=== PATIENT | male | born 1985 | race Caucasian/White ===

== ENCOUNTER 2018-09-20 11:11 | Inpatient (IN) | payer OTHER ==
[2018-09-20 11:49] LABS: PLATELET COUNT 270 10^3/uL (150-400)
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
--- NOTE | 2018-09-20 17:52 | ASMTTCLDSP ---
TLC Discharge Disposition Disposition: Answers: Admit Discharge Concerns/Recommendations: Notes: In consultation with [facility] ED physician, Addison Corrales MD and on-call psychiatrist, Akira Kenney APN, both concurred that pt appears to meet 27-65 criteria requiring psychiatric hospitalization as pt appears to be at risk of harm to gravely disabled due to a mental illness condition. Pt was given the 3N prohibited belongings list while in the ED. For inpatient Akira Kenney APN admission, the following psychiatrist agreed to accept patient for admission to Behavioral [facility] ([facility]): Date Signed: 09/20/2018 05:51 PM Electronically Signed By:Madiha Maradiaga
[2018-09-20] MEDS ORDERED: LORazepam 0.5 MG TAB PO PRN (20:15)
[2018-09-20] MEDS ORDERED: MAG HYDROX/AL HYDROX/SIMETH 30 ML UDCUP PO PRN (20:15)
[2018-09-20] MEDS ORDERED: OLANZapine DISINTEGR 5 MG TAB PO PRN (20:15)
[2018-09-20] MEDS ORDERED: MAGNESIUM HYDROXIDE 30 ML UDCUP PO PRN (20:15)
[2018-09-21] MEDS: ACETAMINOPHEN 325 MG TAB PO PRN (00:36)
[2018-09-21] MEDS ORDERED: NICOTINE POLACRILEX 2 MG GUM B ONE (05:37)
--- NOTE | 2018-09-21 05:40 | GCON ---
MEDICAL CONSULTATION AT THE REQUEST OF PSYCHIATRY. DATE OF CONSULTATION: 09/20/2018 CHIEF COMPLAINT: " I lost my mind over a woman." HISTORY: This is a 33-year-old man who is brought in on an M1 hold from [employer] [facility] with concerns that the patient has been delusional and behaving in a psychotic manner for the last 6 weeks . Apparently, patient has been stalking a female classmate and concerns were raised by the Universit y that he may be psychotic. At the time of my evaluation, patient states that these issues were all over this woman that he fell in love with which made him crazy and states that this has never happene d to him before. He is guarded on my evaluation, will not give any further information and is at salvador es somewhat agitated. He denies any prior similar issues. He denies any current physical complaints other than being physically cold. PAST MEDICAL HISTORY: Denies. PAST SURGICAL HISTORY: Denies. FAMILY HISTORY: He denies any family history of mental health problems or other chronic medical issu es. 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 He denies drug use other than occasional marijuana and alcohol use, which he states are both social only. He is a smoker. REVIEW OF SYSTEMS: A 10-point review of systems obtained, negative except as per HPI. HOME MEDICATIONS: He denies any medications. ALLERGIES: No known drug allergies. PHYSICAL EXAM: VITAL SIGNS: BP 138/68, heart rate 75, respiratory rate 18, O2 sats 96% on room air, temperature is 36.7. GENERAL APPEARANCE: This is a thin, male. He is awake and alert. He is agitated, but no acute distress. EYES: Anicteric. HENT: Oropharynx clear. CARDIOVASCULAR: Regular rate and rhythm. No MRG. PULMONARY: CTA bilaterally. Normal work of breathing. ABDOMEN: Soft, nontender. Positive bowel sounds. EXTREMITIES: No clubbing, cyanosis, or edema. SKIN: Wa rm, dry, well perfused. NEURO/PSYCH: Patient is intermittently flat and then agitated. He is answe ring questions appropriately. His thought process is linear, though he does seem guarded and at time s not wanting to answer questions asked of him. CLINICAL DATA: Labs reviewed. Notable only for a glucose of 105. U-tox was positive for marijuana. ASSESSMENT/PLAN: This is a 33-year-old man apparently no prior past medical history, presenting with concerns of delusional and psychotic behavior. 1. Delusional/psychotic behavior. The patient is difficult to evaluate as he is very cagy on my exa m. He does seem to have a significant amount of lability emotionally. He reports no prior history o f this. Nothing by workup here on physical exam that would explain his current presentation. We sunshine l add on a TSH. Did not see any medical contraindication to any treatment deemed appropriate by the Psychiatric Service at this point. 2. Hyperglycemia. Suspect that this is stress response in the setting of psychosis. Would recommen d a repeat of this at some point, but do not feel this needs to be performed eminently. 3. Marijuana use. Patient is very adamant that he uses only occasionally and lightly. Unclear how this is contributing to his acute presentation. The patient is new to my care. Old records reviewed, summarized as per HPI and past medical history. Care plan reviewed with TLC excellence coach. Medicine will be available peripherally should questions arise during this patient's hospitalization. /[id number]/MODL
[2018-09-21] MEDS: NICOTINE POLACRILEX 2 MG GUM B PRN ×11 (05:45→23:43)
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
--- NOTE | 2018-09-21 14:12 | ASMTBHMTP ---
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 The patient reported that another professor recommended he access therapy through the [facility] due to observed weight loss and lack of eating. The patient reported that he was flirting with a collegue/student although he understood that this was inappropriate per school policy. He minimized the extent to which he attempted contact with this person. The patient stated, "I feel head over heals. It is like I have to fall in love with everyone that I know and figure out who loves me back. I lived my entire life with her in my head." The patient reported that he was called into an "office" to discuss the hint/proposal he made for the person on the chalkboard prior to the start of class, the police became involved, and he was brought to inpatient care. The patient did not demonstrate insight into the need for treatment. The patient later asked this senior technical writer to contact the person whom he is in love with. This senior technical writer declined and reiterated the inappropriate nature of the request. Patient's stated presenting problems: Notes: The patient stated, "None. I'm just love struck." Patient's goals for treatment: Notes: The patient stated, "I'm here to help as many people as I can." Patient's strengths: Notes: The patient stated, "Observation, subtlety, and communicating on multiple levels at once." Identify supports outside of hospital: Notes: The patient reported being supported outside of the hospital by his "neighbors and peers." Discharge criteria: Notes: Psychotic symptoms will be reduced or eliminated with return to baseline functioning in affect, thinking, and behavior prior to discharge. Initial disposition plan/considerations: Notes: The patient plans to return home to his apartment in [place], [place]. Master Treatment Plan Required Signatures Psychiatrist signature: Answers: Psychiatrist: RN on-shift signature: Answers: RN: Patient signature: Answers: Patient: Date Signed: 09/21/2018 02:12 PM Electronically Signed By:Sarina Griffith
--- NOTE | 2018-09-21 14:45 | PDMN ---
Medical Necessity Medical necessity: Pt meets inpt criteria per MD order and [facility] B-[id number], Other Psychotic Disorders, Adult: Inpatient Care, 3 days. 33 y/o on M1 Hold due to grave disability, admitted w/unspecified psychosis, cannabis use do, sever, nicotine dep, r/o delusional do, r/o bipolar. Pt w/current delusions requires inpt psychiatric hospitalization for eval/management of above.
--- NOTE | 2018-09-21 14:45 | ASMTCMCOM ---
CM Note CM Note Notes: Per Ember Garner, the patient has Medicaid [facility]; # [id number]. Case #[id number]. Rinku denied any previous psychiatric history; illness nor treatment. He reported that his son, Phillip, is "stressed out and lacking sleep." He is in contact with Whit at on behalf of the patient. Date Signed: 09/21/2018 02:45 PM Electronically Signed By:Sarina Griffith
[2018-09-22] MEDS: NICOTINE POLACRILEX 2 MG GUM B PRN ×5 (00:47→16:44)
[2018-09-22] MEDS ORDERED: NICOTINE POLACRILEX 2 MG GUM B ONE (03:32)
--- NOTE | 2018-09-22 14:15 | ASMTCMCOM ---
CM Note CM Note Notes: Pt reports feeling "great". Pt. stated he slept "very well". Pt. reports "I don't eat your food", adding "I order pizza". Pt. stated he is not taking any medication currently, adding "all I had to do was sober up". Pt. reports attending all groups while on the unit. Pt. stated he is not having any issues while on the unit. Pt. stated he will be on the unit until tomorrow afternoon "at the latest, adding he would "like to leave". Pt. denied SI, HI, AVH and paranoia. Pt. presents as alert, attentive, calm, a bit guarded, cooperative and with good eye contact. Staff report pt. sleeping 3.5 hours and not currently taking any medications. CC team reports pt's cat has been checked on and given "lots of food and water", and pt's parent's requested pt's cat not be removed from the apartment, adding the cat is an BYRON cat. Date Signed: 09/22/2018 02:13 PM Electronically Signed By:Alyssa Tohmas
[2018-09-22] MEDS ORDERED: NICOTINE 14 MG/24 HR PATCH TD PRN (15:33)
--- NOTE | 2018-09-22 17:35 | SOAPPROG ---
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 She alleges he broke into her office and left bizarre nonsensical notes. Patient says "this is just a big misunderstanding". He reports that he fell in love with her, does not know if the feeling is mutual, and that he is being accused of stalking her. Plan: 09/22/18 17:34 1. Patient has no psychotic sxs. His only bizarre behavior is inappropriate behavior toward female grad student. He continues to have no insight into the severity of his behavior or its inappropriateness. He is not deluded that his female colleague is in love with him, he only insists he wants to find out if she shares his feelings. However, he is clearly not willing to take no for an answer. He is not paranoid and does not have other bizarre thoughts. It's likely that his impaired reality testing is d/t daily THC use. It would be unusual for 33 yo man to develop psychotic sxs for first time at this age. Typically first psychotic episodes for men are in late teens early 20's. 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 2. Patient would benefit from abstinence from THC and other cognitively impairing substances. He might also benefit from low dose SGA until sxs fully resolve. However, patient adamantly refuses all psych meds. 3. [facility] expires on Monday. Will encourage patient to remain in hospital for further safety, stabilization and monitoring. 4. Recommend f/u with providers through [facility] and [facility]. Subjective: Patient is pleasant and cooperative on unit. However, he has been spending most of his time on unit with one female peer. He has not engaged in any sexually inappropriate behavior during his admission. He denies feeling sad, depressed, hopeless, helpless, worthless or anxious. He denies any paranoid delusions, AH/ VH, IOR or bizarre thoughts. He demonstrates limited insight into the effect his behaviors had on his female colleague or why they were inappropriate. Objective: Vital Signs Temp Pulse Resp BP Pulse Ox 36.5 C 54 L 16 117/68 95 09/22/18 06:00 09/22/18 06:00 09/22/18 06:00 09/22/18 06:00 09/22/18 06:00 MSE: Affect: Euthymic Mood: "OK" TP: Linear, goal-directed TC: Denies any SI/ HI, no paranoid Perception: No AH/VH Insight/Judgment: Poor a/e/b "stalking" behavior of female colleague - Time Spent With Patient Time Spent With Patient: 15" - Pending Discharge Pending Discharge Within 24 Hours: No Pending Discharge Within 48 Hours: No ICD10 Worksheet Patient Problems: Problems Problem Status Onset Cannabis use disorder, severe, dependence Acute Nicotine dependence Acute Unspecified psychosis Acute
[2018-09-23] MEDS: NICOTINE POLACRILEX 2 MG GUM B PRN ×9 (00:21→23:40)
--- NOTE | 2018-09-23 15:25 | ASMTCMCOM ---
CM Note CM Note Notes: Pt. reports feeling "contimplative". Pt. stated he slept "well. Got over six hours". Pt. stated he is not taking any medications. Pt. stated he has been attending groups, adding "they are a lot of fun". Pt. stated he was "running an experiement" with THC, adding "which failed". Pt. stated he smokes THC to help him sleep. Pt. reports his smoking increased and is the "main reason" why the pt. is now in the hospital. Pt. stated THC "makes it difficult to understand your emotions". Pt. stated he plans to smoke THC over the holiday break and will stop smoking at the beginning of next semester. Pt. 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 Pt. stated this [employer] student ministries director also wants to meet him because "she saw something in my handwriting which has several aspects of other languages". Pt. stated he has a dentist appointment on Monday at 1:15pm, adding he doesn't take care of his teeth as a form os "self punishment" for continuing to smoke cigarettes. Pt. was interested in quitting smoking and provided him with the [id number] card. Pt. stated he has until 09/27 to withdraw from his classes. Pt. denied SI, HI, AVH and paranoia. Pt. presents as alert, good eye contact, grandiose, delusional, mostly cooperative, and needing to be redirected from listening to CC's conversations with other pts and pt's family members Staff report pt. sleeping 3 hours and being rude and demanding with RN. Date Signed: 09/23/2018 03:25 PM Electronically Signed By:Alyssa Thomas
--- NOTE | 2018-09-23 17:57 | SOAPPROG ---
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 She alleges he broke into her office and left bizarre nonsensical notes. Patient says "this is just a big misunderstanding". He reports that he fell in love with her, does not know if the feeling is mutual, and that he is being accused of stalking her. Plan: 09/22/18 17:34 1. Patient has no psychotic sxs. His only bizarre behavior is inappropriate behavior toward female grad student. He continues to have no insight into the severity of his behavior or its inappropriateness. He is not deluded that his female colleague is in love with him, he only insists he wants to find out if she shares his feelings. However, he is clearly not willing to take no for an answer. He is not paranoid and does not have other bizarre thoughts. It's likely that his impaired reality testing is d/t daily THC use. It would be unusual for 33 yo man to develop psychotic sxs for first time at this age. Typically first psychotic episodes for men are in late teens early 20's. 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 2. Patient would benefit from abstinence from THC and other cognitively impairing substances. He might also benefit from low dose SGA until sxs fully resolve. However, patient adamantly refuses all psych meds. 3. [facility] expires on Monday. Will encourage patient to remain in hospital for further safety, stabilization and monitoring. 4. Recommend f/u with providers through [facility] and [employer]. 09/23/18 17:54 1. Patient expressing bizarre ideas that appear delusional. 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 2. Patient acknowledges that his thoughts have been "messed up" since he started smoking more marijuana. He admits he went from smoking "a blunt" a day to several bowels daily over past few months. 3. Patient says there is "nothing wrong" and refuses all psych meds. 4. Will place on STC Subjective: Patient states there is "nothing wrong" and he doesn't need to be in hospital and refuses all psych meds. He told CC that he had been "running an experiment" on himself over past several months by increasing his THC use and says "it failed." Patient says since he's been in hospital he is thinking better and thoughts are "more clear." Patient still has no insight into the inappropriate nature of his behavior toward female colleague in grad program at . Today, patient was talking about working on "universal timber setter" jazlyn with [employer] grad student. This sounds delusional on face of it, but MD has no collateral information to verify whether this is true or not. Patient denies any SI/HI. Objective: Vital Signs Temp Pulse Resp BP Pulse Ox 36.5 C 78 12 109/70 97 09/22/18 06:00 09/23/18 06:00 09/23/18 06:00 09/23/18 06:00 09/23/18 06:00 MSE: Affect: Expansive Mood: "Great" TP: Loose, tangential TC: Denies any SI /HI, appears delusional Perception: Denies any AH/VH Insight/Judgment: Poor - Time Spent With Patient Time Spent With Patient: 15" - Pending Discharge Pending Discharge Within 24 Hours: No Pending Discharge Within 48 Hours: No ICD10 Worksheet Patient Problems: Problems Problem Status Onset Cannabis use disorder, severe, dependence Acute Nicotine dependence Acute Unspecified psychosis Acute
[2018-09-23] MEDS ORDERED: NICOTINE POLACRILEX 2 MG GUM B ONE (23:39)
[2018-09-24] MEDS: NICOTINE POLACRILEX 2 MG GUM B PRN ×7 (00:45→21:11)
--- NOTE | 2018-09-24 08:44 | SOAPPROG ---
SOAP Progress Note Assessment/Plan: Assessment: Unspecified Psychosis. Cannabis Use Disorder, Severe. R/O Substance-induced psychosis. Improvement noted, notably slight improved insight and judgment ( see subjective/objective note). 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 Patient insight has improved slightly, however, as he now reports his behavior toward grad student was inappropriate. Possible indication cannabis-induced psychosis is clearing. Patient is not safe to discharge at this time as patient continues to exhibit signs of psychosis, and express psychosis symptoms. Patient requires continued inpatient care because of current psychosis, and requires inpatient level of care to stabilize in order to no longer be a danger to others and gravely disabled due to mental illness. Patient could benefit from continued inpatient hospitalization for crisis stabilization, safety, and medication evaluation. Plan: 1. Psychotropic medications: Patient refuses psych meds. 2. Review with patient informed consent and recommendations for psychotropic medication treatment listed below 3. Labs: no additional labs at this time. 4. Therapy: continue milieu and group therapy 5. Further investigation including gathering information from patients relatives and review of past case records to inform treatment plan. 6. Safety/Wellness plan and follow-up outpatient appointments to be established prior to discharge. Next steps are for patient to meet with disabilities caregiver to plan a safe discharge plan and establish outpatient services for ongoing treatment. 7. Confer with inpatient treatment team regarding treatment plan. 8. Psychosocial stressors addressed through case technician 9. Legal status: [facility] 10. Consider discharge this week if patient is in stable condition, safe, and has a safe discharge plan. 11. Substance abuse interventions: cannabis PSYCHOTROPIC MEDICATION TREATMENT INFORMED CONSENT and RECOMMENDATIONS: Review nature of condition, diagnosis, and prognosis. Review nature and purpose of psychotropic medication treatment. Review type of psychotropic medications being ordered. Review risk and benefits of psychotropic medication treatment. Review probable length of time patient will need to take medications. Review risk and benefits of not undergoing psychotropic medication treatment. Review alternative treatments to psychotropic medications. Review psychotropic medications contraindications, drug-drug interactions, side effects, and importance of reporting any side effects to a psychiatric provider or nurse during inpatient hospitalization, and upon discharge to patients psychiatric outpatient provider, primary care provider, or other health acute care physical therapist. Review importance of asking a nurse, psychiatric provider, or primary care provider any questions or problems concerning the psychotropic medications. Verify patient understands the information that has been provided, and understands, accepts, and agrees to psychotropic medications. Review patients safety plan and importance of patient to report to staff while hospitalized if patient is ever a danger to self/others, or unable to care for self, and upon discharge, the importance for patient to contact [facility] or [facility], or go to the nearest emergency room, if patient is ever a danger to self/others, or unable to care for self. Recommend that upon discharge patient establish medication management treatment with a psychiatric provider, establishes routine therapy appointments, and follow-up with primary care provider. Verify patient understands and agrees to these recommendations. 09/24/18 08:47 Subjective: Following up with patient for evaluation of psychosis and safety. Patient reports, "I came to terms with my situation, I sobered up, easier to see the mistakes and whatnot. What I did at was not good, I think I scared her, I didn't mean to. I won't speak to her again. If she doesn't want to talk to me , I want talk to her. I will avoid her and stuff like that. What I did was inappropriate. I would not define what I did as stalking, more inappropriate, and I did not send that many e-mails, that is grossly exaggerated." Patient expresses the following psychiatric symptoms none. Patient describes getting 4.5 hours of sleep, and reports feeling rested this morning. Objective: Vital Signs Temp Pulse Resp BP Pulse Ox 36.7 C 88 16 114/76 94 09/24/18 06:00 09/24/18 06:00 09/24/18 06:00 09/24/18 06:00 09/24/18 06:00 NURSING REPORT: Consulted with nursing for update on patients progress in treatment. Nurses report patient is engaged in treatment, is attending groups, slept 4 hours, expresses the following psychiatric symptoms: none, exhibits the following psychiatric symptoms: paranoid, delusional; is eating all meals, is agreeable to medications and taking as prescribed with no report of side effects , with no s/s of EPS/akathisia, and denies SI/HI, denies A/V hallucinations, and reports delusions. MD REPORT FROM WEEKEND: Placed on STC. Still refusing to take psych meds. MSE: The patient presents casually dressed and with good hygiene, and looks stated age. Patient is sitting, posture is upright, and position is relaxed. Patient appears awake, alert, and responds appropriately and reasonably during interview. Patient is engaged, relates well to interviewer, and emotional facial expression is appropriate to situation and changes appropriately with topic. Patient is cooperative, makes comfortable eye contact, and movements are voluntary, deliberate, coordinated, and smooth and even with no inappropriate movements. Patient makes laryngeal sounds effortlessly and shares conversation appropriately; pace of conversation is appropriate, and stream of talking is fluent; articulation is clear and understandable; word choice is effortless and appropriate for education level; completes sentences, occasionally pausing to think; rate and volume are appropriate for interview and setting. Patient reports mood as euthymic. Patients affect is stable with full variable range, congruent with mood, and appropriate to speech and circumstances. Patient has linear and illogical thinking, with no loose associations, no tangential thought, no thought blocking, no concrete thinking, or any other signs of formal thought disorder. Patient denies suicidal and homicidal ideation, and denies hallucinations, and reports delusions. Patient appears to be a poor historian with poor judgement and poor insight into current condition. SUBSTANCE ABUSE BRIEF INTERVENTION: Brief intervention regarding the risks of cannabis abuse is provided to patient with goal to reduce the risk of harm that could result from the continued use of cannabis, with the general aim to investigate the problem, raise awareness of problem, develop a solution with the patient, recommend a specific change or activity, and motivate the patient toward change. Assess substance abuse behavior and give supportive advice about harm reduction, recommend a reduction in hazardous/at-risk consumption patterns, and facilitate referrals for additional specialized treatment with patient care technician. Intermediate goal is for the patient to quit and attend outpatient substance abuse treatment. Intervention focus on intermediate goals to allow for more immediate success in the treatment process to keep the patient motivated. Review following with patient: Cannabis use risks: Short- term use: impaired short-term memory, impaired motor coordination, altered judgement, in high doses paranoia and psychosis. Long-term use addiction, diminished life satisfaction and achievement, symptoms of chronic bronchitis, and increased risk of chronic psychosis disorders if predisposition to such disorders. In withdrawal anger, aggression irritability, anxiety and nervousness, decreased appetite or weight loss, restlessness, and sleep difficulties with strange dreams. OUTPATIENT SUBSTANCE ABUSE TREATMENT: Patient referred to outpatient provider and treatment for continued treatment related to substance abuse. PATIENT'S RESPONSE TO INTERVENTION: "Increased use of cannabis is exactly why I am here. I am not going to use it anymore." - Time Spent With Patient Time Spent With Patient: 15 minutes, met with patient individually. - Pending Discharge Pending Discharge Within 24 Hours: No Pending Discharge Within 48 Hours: No ICD10 Worksheet Patient Problems: Problems Problem Status Onset Cannabis use disorder, severe, dependence Acute Nicotine dependence Acute Unspecified psychosis Acute
--- NOTE | 2018-09-24 14:04 | ASMTCMCOM ---
CM Note CM Note Notes: Pt. reports feeling "excellent". Pt. stated he slept "well" adding he got "about 4.5 to 5 hours". Pt. stated "don't need that much sleep when sober". Pt. reports gaining 5 lbs while on the unit. Pt. stated he is not taking any medications and requested melatonin for sleep. Pt. stated "it's really scary" when discussing the STC. Pt. stated he is "really worried about my cat". CC discussed options for caring for his cat, pt. stated he will need to figure out his friend's phone number. Pt. stated he "need to go to the dentist tomorrow", adding he also needs to withdraw from all of his classes by the . CC mentioned the [employer] phone number and asked if pt. had called. Pt. said he will keep the contact information, but "never going to touch cigarette or weed again". Pt. stated he will "never contact that woman again". Pt. denied SI, HI, AVH and paranoia. Pt. presents as alert, labile when speaking about his cat, good eye contact, and cooperative. Staff report pt. sleeping 3 hours. Date Signed: 09/24/2018 02:04 PM Electronically Signed By:Alyssa Thomas
[2018-09-24] MEDS ORDERED: OLANZapine DISINTEGR 5 MG TAB PO SCH (21:00)
[2018-09-24] MEDS: MELATONIN 3 MG TAB PO SCH (22:10)
[2018-09-25] MEDS: NICOTINE POLACRILEX 2 MG GUM B PRN ×4 (04:37→21:37)
[2018-09-25] MEDS: ACETAMINOPHEN 325 MG TAB PO PRN (04:37)
[2018-09-25] MEDS ORDERED: OLANZapine DISINTEGR 10 MG TAB PO SCH (06:30)
--- NOTE | 2018-09-25 06:52 | SOAPPROG ---
SOAP Progress Note Assessment/Plan: Assessment: Unspecified Psychosis. Cannabis Use Disorder, Severe. R/O Substance-induced psychosis, substance-induced mood disorder. No improvement noted (see subjective/objective note). 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 Patient is not safe to discharge at this time as patient continues to exhibit signs of psychosis, and express psychosis symptoms. Yesterday was first day patient willing to begin trial of psychotropic medications since time of his hospitalization. Patient requires continued inpatient care because of current psychosis, and requires inpatient level of care to stabilize in order to no longer be a danger to others and gravely disabled due to mental illness. Patient is unable to communicate his basic needs. Patient exhibits inability to test reality, currently shows inability to maintain any appropriate aspect of personal responsibility as an adult, patient becomes agitated and irritable when asked simple and appropriate questions. Patient could benefit from continued inpatient hospitalization for crisis stabilization, safety, and medication evaluation. Plan: 1. Psychotropic medications: After reviewing options, risks, and benefits patient agrees to continue current mediations with following changes: increase Zyprexa Zydis to 10 mg po QHS. No medication changes at this time as more time is needed to determine ongoing tolerability and efficacy. Plan is to continue to observe patient for response and side effects from medications, and ongoing monitoring and evaluation. 2. Review with patient informed consent and recommendations for psychotropic medication treatment listed below 3. Labs: no additional labs at this time. 4. Therapy: continue milieu and group therapy 5. Further investigation including gathering information from patients relatives and review of past case records to inform treatment plan. 6. Safety/Wellness plan and follow-up outpatient appointments to be established prior to discharge. Next steps are for patient to meet with home care giver to plan a safe discharge plan and establish outpatient services for ongoing treatment. 7. Confer with inpatient treatment team regarding treatment plan. 8. Psychosocial stressors addressed through case management associate 9. Legal status: [facility] 10. Consider discharge this week if patient is in stable condition, safe, and has a safe discharge plan. 11. Substance abuse interventions: cannabis PSYCHOTROPIC MEDICATION TREATMENT INFORMED CONSENT and RECOMMENDATIONS: Review nature of condition, diagnosis, and prognosis. Review nature and purpose of psychotropic medication treatment. Review type of psychotropic medications being ordered. Review risk and benefits of psychotropic medication treatment. Review probable length of time patient will need to take medications. Review risk and benefits of not undergoing psychotropic medication treatment. Review alternative treatments to psychotropic medications. Review psychotropic medications contraindications, drug-drug interactions, side effects, and importance of reporting any side effects to a psychiatric provider or nurse during inpatient hospitalization, and upon discharge to patients psychiatric outpatient provider, primary care provider, or other health primary care pediatrician. Review importance of asking a nurse, psychiatric provider, or primary care provider any questions or problems concerning the psychotropic medications. Verify patient understands the information that has been provided, and understands, accepts, and agrees to psychotropic medications. Review patients safety plan and importance of patient to report to staff while hospitalized if patient is ever a danger to self/others, or unable to care for self, and upon discharge, the importance for patient to contact [facility] or [facility], or go to the nearest emergency room, if patient is ever a danger to self/others, or unable to care for self. Recommend that upon discharge patient establish medication management treatment with a psychiatric provider, establishes routine therapy appointments, and follow-up with primary care provider. Verify patient understands and agrees to these recommendations. 09/25/18 06:54 Subjective: Following up with patient for evaluation of psychosis and safety. Patient reports, "I slept really well last night. Medication seemed to help. I still disagree with the report from . I was not stalking her. I was just in love. The number of e-mails reported that I sent is grossly exaggerated. I did not send 50 e-mails, I sent maybe 4-5. I think there is some covert racism going on. I would rather go up against overt racism instead of covert racism. This is ridiculous. This place is segregated. Total racism. I did not do anything wrong." Patient expresses the following psychiatric symptoms none. Patient describes getting 4 hours of sleep, and reports feeling rested this morning. Patient reports no side effects from current medications, and agrees to increase Zyprexa Zydis to 10 mg po QHS. Objective: Vital Signs Temp Pulse Resp BP Pulse Ox 36.6 C 70 16 118/74 95 09/25/18 06:00 09/25/18 06:00 09/25/18 06:00 09/25/18 06:00 09/25/18 06:00 NURSING REPORT: Consulted with nursing for update on patients progress in treatment. Nurses report patient is engaged in treatment, is attending groups, slept 4 hours, expresses the following psychiatric symptoms: none, exhibits the following psychiatric symptoms: paranoid, delusional, irritable; is eating all meals, is agreeable to medications and taking as prescribed with no report of side effects, with no s/s of EPS/akathisia, and denies SI/HI, denies A/V hallucinations, and reports delusions. MD REPORT FROM WEEKEND: Placed on [facility]. Still refusing to take psych meds. COLLATERAL FROM [employer]: concerns whether or not patient will be able to return to ; failing all his classes, banned from his department building, stalking charges that are being investigated through the campus [employer] department. MSE: The patient is a well-nourished male looking stated chronological age. Attire is appropriate and dress is casual. Grooming status is appropriate. Ambulation is independent. Gait is normal and coordinated. Posture is tense. Eye contact is inappropriate and staring. Motor activity is appropriate with purposeful, organized, coordinated movements; with no involuntary movements. Attitude is uncooperative and defensive. Patient appears distracted and does not relate well to this interviewer. Language production is spontaneous. Rate is pressured, latency of response is shortened, volume is high and inappropriate. Amount is hyperverbal. Articulation is clear. Patient reports mood as okay with incongruent and expansive affect. Patients thought process disorganized, illogical, and non-linear. Patient does not report suicidal/ homicidal thoughts, ideas, or plans. Patient denies auditory, visual hallucinations. Patient reports delusions. Patient does not appear to be attending to internal stimuli. Patients attention and concentration are poor. Patient is oriented to person, place, time. Patients insight and judgment poor. SUBSTANCE ABUSE BRIEF INTERVENTION: Brief intervention regarding the risks of cannabis abuse is provided to patient with goal to reduce the risk of harm that could result from the continued use of cannabis, with the general aim to investigate the problem, raise awareness of problem, develop a solution with the patient, recommend a specific change or activity, and motivate the patient toward change. Assess substance abuse behavior and give supportive advice about harm reduction, recommend a reduction in hazardous/at-risk consumption patterns, and facilitate referrals for additional specialized treatment with nursing care partner. Intermediate goal is for the patient to quit and attend outpatient substance abuse treatment. Intervention focus on intermediate goals to allow for more immediate success in the treatment process to keep the patient motivated. Review following with patient: Cannabis use risks: Short- term use: impaired short-term memory, impaired motor coordination, altered judgement, in high doses paranoia and psychosis. Long-term use addiction, diminished life satisfaction and achievement, symptoms of chronic bronchitis, and increased risk of chronic psychosis disorders if predisposition to such disorders. In withdrawal anger, aggression irritability, anxiety and nervousness, decreased appetite or weight loss, restlessness, and sleep difficulties with strange dreams. OUTPATIENT SUBSTANCE ABUSE TREATMENT: Patient referred to outpatient provider and treatment for continued treatment related to substance abuse. PATIENTS RESPONSE TO INTERVENTION: "Need to stop using it." - Time Spent With Patient Time Spent With Patient: 15 minutes, met with patient individually. - Pending Discharge Pending Discharge Within 24 Hours: No Pending Discharge Within 48 Hours: No ICD10 Worksheet Patient Problems: Problems Problem Status Onset Cannabis use disorder, severe, dependence Acute Nicotine dependence Acute Unspecified psychosis Acute
[2018-09-25] MEDS: OLANZapine DISINTEGR 10 MG TAB PO SCH (20:42)
[2018-09-25] MEDS: MELATONIN 3 MG TAB PO SCH (20:53)
[2018-09-25] MEDS ORDERED: diphenhydrAMINE 25 MG CAP PO PRN (22:08)
--- NOTE | 2018-09-26 09:27 | SOAPPROG ---
SOAP Progress Note Assessment/Plan: Assessment: Unspecified Psychosis. Cannabis Use Disorder, Severe. R/O Substance-induced psychosis. No improvement noted (see subjective/objective note). 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 Patient is not safe to discharge at this time as patient continues to exhibit signs of psychosis, and express psychosis symptoms. Yesterday was first day patient willing to begin trial of psychotropic medications since time of his hospitalization. Patient requires continued inpatient care because of current psychosis, and requires inpatient level of care to stabilize in order to no longer be a danger to others and gravely disabled due to mental illness. Patient is unable to communicate his basic needs. Patient exhibits inability to test reality, currently shows inability to maintain any appropriate aspect of personal responsibility as an adult, patient becomes agitated and irritable when asked simple and appropriate questions. Patient could benefit from continued inpatient hospitalization for crisis stabilization, safety, and medication evaluation. Plan: 1. Psychotropic medications: After reviewing options, risks, and benefits patient agrees to continue current mediations. No medication changes at this time as more time is needed to determine ongoing tolerability and efficacy. Plan is to continue to observe patient for response and side effects from medications, and ongoing monitoring and evaluation. 2. Review with patient informed consent and recommendations for psychotropic medication treatment listed below 3. Labs: no additional labs at this time. 4. Therapy: continue milieu and group therapy 5. Further investigation including gathering information from patients relatives and review of past case records to inform treatment plan. 6. Safety/Wellness plan and follow-up outpatient appointments to be established prior to discharge. Next steps are for patient to meet with assisted living care manager to plan a safe discharge plan and establish outpatient services for ongoing treatment. 7. Confer with inpatient treatment team regarding treatment plan. 8. Psychosocial stressors addressed through nurse case management 9. Legal status: [facility] 10. Consider discharge this week if patient is in stable condition, safe, and has a safe discharge plan. 11. Substance abuse interventions: cannabis PSYCHOTROPIC MEDICATION TREATMENT INFORMED CONSENT and RECOMMENDATIONS: Review nature of condition, diagnosis, and prognosis. Review nature and purpose of psychotropic medication treatment. Review type of psychotropic medications being ordered. Review risk and benefits of psychotropic medication treatment. Review probable length of time patient will need to take medications. Review risk and benefits of not undergoing psychotropic medication treatment. Review alternative treatments to psychotropic medications. Review psychotropic medications contraindications, drug-drug interactions, side effects, and importance of reporting any side effects to a psychiatric provider or nurse during inpatient hospitalization, and upon discharge to patients psychiatric outpatient provider, primary care provider, or other health healthcare marketer. Review importance of asking a nurse, psychiatric provider, or primary care provider any questions or problems concerning the psychotropic medications. Verify patient understands the information that has been provided, and understands, accepts, and agrees to psychotropic medications. Review patients safety plan and importance of patient to report to staff while hospitalized if patient is ever a danger to self/others, or unable to care for self, and upon discharge, the importance for patient to contact [facility] or [facility], or go to the nearest emergency room, if patient is ever a danger to self/others, or unable to care for self. Recommend that upon discharge patient establish medication management treatment with a psychiatric provider, establishes routine therapy appointments, and follow-up with primary care provider. Verify patient understands and agrees to these recommendations. 09/26/18 09:26 Subjective: Following up with patient for evaluation of psychosis and safety. Patient reports, "I did take the medication, then I had a panic attack because I was so freaked-out about taking it. Please, please, please, (patient screaming), I do not want to take any more medications or any higher dose." With regard to why patient is hospitalized, "I agree I sent too many e-mails, I disagree with the report from the professors and grad student though. It was excessive, but not as excessive as they are saying it was. 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 I did no steal anything, I actually left thing for her. I left before classes started because I was told not to be there." Patient expresses the following psychiatric symptoms none. Patient describes getting 8 hours of sleep, and reports feeling rested this morning. Patient reports no side effects from current medications, and agrees to continue current medications. When this [employer] suggests a higher dose of Zyprexa Zydis at HS, patient screams, covers face with his hands, becomes frantic, and screams "no, no, no." Objective: Vital Signs Temp Pulse Resp BP Pulse Ox 36.6 C 79 16 138/89 H 95 09/25/18 06:00 09/25/18 21:35 09/25/18 06:00 09/25/18 21:35 09/25/18 06:00 NURSING REPORT: Consulted with nursing for update on patients progress in treatment. Nurses report patient is engaged in treatment, is attending groups, slept 4 hours, expresses the following psychiatric symptoms: none, exhibits the following psychiatric symptoms: paranoid, delusional, irritable, pressured speech, hyperactivity on unit, intrusive; is eating all meals, is agreeable to medications and taking as prescribed with no report of side effects, with no s/ s of EPS/akathisia, and denies SI/HI, denies A/V hallucinations, and reports delusions. MSE: The patient is a well-nourished male looking stated chronological age. Attire is appropriate and dress is casual. Grooming status is appropriate. Ambulation is independent. Gait is normal and coordinated. Posture is tense. Eye contact is inappropriate and staring. Motor activity is appropriate with purposeful, organized, coordinated movements; with no involuntary movements. Attitude is uncooperative and defensive. Patient appears distracted and does not relate well to this interviewer. Language production is spontaneous. Rate is pressured, latency of response is shortened, volume is high and inappropriate. Amount is hyperverbal. Articulation is clear. Patient reports mood as okay with incongruent and expansive affect. Patients thought process disorganized, illogical, and non-linear. Patient does not report suicidal/ homicidal thoughts, ideas, or plans. Patient denies auditory, visual hallucinations. Patient reports delusions. Patient does not appear to be attending to internal stimuli. Patients attention and concentration are poor. Patient is oriented to person, place, time. Patients insight and judgment poor. SUBSTANCE ABUSE BRIEF INTERVENTION: Brief intervention regarding the risks of cannabis abuse is provided to patient with goal to reduce the risk of harm that could result from the continued use of cannabis, with the general aim to investigate the problem, raise awareness of problem, develop a solution with the patient, recommend a specific change or activity, and motivate the patient toward change. Assess substance abuse behavior and give supportive advice about harm reduction, recommend a reduction in hazardous/at-risk consumption patterns, and facilitate referrals for additional specialized treatment with nurse healthcare manager. Intermediate goal is for the patient to quit and attend outpatient substance abuse treatment. Intervention focus on intermediate goals to allow for more immediate success in the treatment process to keep the patient motivated. Review following with patient: Cannabis use risks: Short- term use: impaired short-term memory, impaired motor coordination, altered judgement, in high doses paranoia and psychosis. Long-term use addiction, diminished life satisfaction and achievement, symptoms of chronic bronchitis, and increased risk of chronic psychosis disorders if predisposition to such disorders. In withdrawal anger, aggression irritability, anxiety and nervousness, decreased appetite or weight loss, restlessness, and sleep difficulties with strange dreams. OUTPATIENT SUBSTANCE ABUSE TREATMENT: Patient referred to outpatient provider and treatment for continued treatment related to substance abuse. - Time Spent With Patient Time Spent With Patient: 15 minutes, met with patient individually. - Pending Discharge Pending Discharge Within 24 Hours: No Pending Discharge Within 48 Hours: No ICD10 Worksheet Patient Problems: Problems Problem Status Onset Cannabis use disorder, severe, dependence Acute Nicotine dependence Acute Unspecified psychosis Acute
[2018-09-26] MEDS: ACETAMINOPHEN 325 MG TAB PO PRN ×2 (09:29→23:28)
[2018-09-26] MEDS: NICOTINE POLACRILEX 2 MG GUM B PRN ×5 (09:30→19:58)
--- NOTE | 2018-09-26 14:12 | ASMTBHFAM ---
Notes Note: Notes: This communications writer spoke with Rinku Garner, who requested an update of the patient's affect and behavior, as well as, a letter to submit to for medical withdrawal from school on behalf of the patient. This communications writer answered questions about his medication list, anticipated discharge, legal status, and follow up care. Rinku reported that the patient has a history of resisting medication for physical complaints. Rinku was surprised to learn about the behavior that the patient exhibited prior to admission. According to [facility] staff, the patient has been demanding, hostile, grandiose, and intrusive. Date Signed: 09/26/2018 02:11 PM Electronically Signed By:Sarina Griffith
[2018-09-26] MEDS: MELATONIN 3 MG TAB PO SCH ×2 (21:57→23:35)
[2018-09-26] MEDS: OLANZapine DISINTEGR 10 MG TAB PO SCH (21:57)
--- NOTE | 2018-09-27 08:14 | SOAPPROG ---
SOAP Progress Note Assessment/Plan: Assessment: Unspecified Psychosis. Cannabis Use Disorder, Severe. R/O Substance-induced psychosis. No improvement noted, no insight (see subjective/objective note). 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 Patient is not safe to discharge at this time as patient continues to exhibit signs of psychosis, and express psychosis symptoms. Yesterday was first day patient willing to begin trial of psychotropic medications since time of his hospitalization. Patient requires continued inpatient care because of current psychosis, and requires inpatient level of care to stabilize in order to no longer be a danger to others and gravely disabled due to mental illness. Patient is unable to communicate his basic needs. Patient exhibits inability to test reality, currently shows inability to maintain any appropriate aspect of personal responsibility as an adult, patient becomes agitated and irritable when asked simple and appropriate questions. Patient could benefit from continued inpatient hospitalization for crisis stabilization, safety, and medication evaluation. Plan: 1. Psychotropic medications: After reviewing options, risks, and benefits patient agrees to continue current mediations. No medication changes at this time as more time is needed to determine ongoing tolerability and efficacy. Plan is to continue to observe patient for response and side effects from medications, and ongoing monitoring and evaluation. 2. Review with patient informed consent and recommendations for psychotropic medication treatment listed below 3. Labs: no additional labs at this time. 4. Therapy: continue milieu and group therapy 5. Further investigation including gathering information from patients relatives and review of past case records to inform treatment plan. 6. Safety/Wellness plan and follow-up outpatient appointments to be established prior to discharge. Next steps are for patient to meet with furnace caretaker to plan a safe discharge plan and establish outpatient services for ongoing treatment. 7. Confer with inpatient treatment team regarding treatment plan. 8. Psychosocial stressors addressed through employment evaluator/case manager 9. Legal status: ST 10. Consider discharge this week if patient is in stable condition, safe, and has a safe discharge plan. 11. Substance abuse interventions: cannabis 12. Consult MD and treatment team today regarding COM as patient continues to refuse medications. PSYCHOTROPIC MEDICATION TREATMENT INFORMED CONSENT and RECOMMENDATIONS: Review nature of condition, diagnosis, and prognosis. Review nature and purpose of psychotropic medication treatment. Review type of psychotropic medications being ordered. Review risk and benefits of psychotropic medication treatment. Review probable length of time patient will need to take medications. Review risk and benefits of not undergoing psychotropic medication treatment. Review alternative treatments to psychotropic medications. Review psychotropic medications contraindications, drug-drug interactions, side effects, and importance of reporting any side effects to a psychiatric provider or nurse during inpatient hospitalization, and upon discharge to patients psychiatric outpatient provider, primary care provider, or other health healthcare translator. Review importance of asking a nurse, psychiatric provider, or primary care provider any questions or problems concerning the psychotropic medications. Verify patient understands the information that has been provided, and understands, accepts, and agrees to psychotropic medications. Review patients safety plan and importance of patient to report to staff while hospitalized if patient is ever a danger to self/others, or unable to care for self, and upon discharge, the importance for patient to contact [facility] or [facility], or go to the nearest emergency room, if patient is ever a danger to self/others, or unable to care for self. Recommend that upon discharge patient establish medication management treatment with a psychiatric provider, establishes routine therapy appointments, and follow-up with primary care provider. Verify patient understands and agrees to these recommendations. 09/27/18 08:13 Subjective: Following up with patient for evaluation of psychosis and safety. Patient reports, "I only took of the medication last night, I spit most of it out. I broke the medication in , then put it in my gum, and spit out the gum. I do not need medications. It just makes me fucked-up man, bad stuff. I dont need to be fucked up all the time. I do not want to follow this behavioral plan. It is very difficult for me not use four letter words. I am here because I over stepped my bounds, I was not stalking. I am just very romantic and like to do things extravagantly. We will flirting the whole semester, she never told me to not pursue her, or quit pursing her. Until the last e-mail when she was probably trying to save her job." Patient expresses the following psychiatric symptoms none. Patient describes getting 7 hours of sleep, and reports feeling rested this morning. Objective: Vital Signs Temp Pulse Resp BP Pulse Ox 36.6 C 79 16 138/89 H 95 09/25/18 06:00 09/25/18 21:35 09/25/18 06:00 09/25/18 21:35 09/25/18 06:00 NURSING REPORT: Consulted with nursing for update on patients progress in treatment. Nurses report patient is engaged in treatment, is attending groups, slept 5 hours, expresses the following psychiatric symptoms: none, exhibits the following psychiatric symptoms: paranoid, delusional, irritable; is eating all meals, is agreeable to medications and taking as prescribed with no report of side effects, with no s/s of EPS/akathisia, and denies SI/HI, denies A/V hallucinations, and reports delusions. MSE: The patient is a well-nourished male looking stated chronological age. Attire is appropriate and dress is casual. Grooming status is appropriate. Ambulation is independent. Gait is normal and coordinated. Posture is tense. Eye contact is inappropriate and staring. Motor activity is appropriate with purposeful, organized, coordinated movements; with no involuntary movements. Attitude is uncooperative and defensive, irritable. Patient appears distracted and does not relate well to this interviewer. Language production is spontaneous. Rate is pressured, latency of response is shortened, volume is high and inappropriate. Amount is hyperverbal. Articulation is clear. Patient reports mood as okay with incongruent and expansive affect. Patients thought process disorganized, illogical, and non-linear. Patient does not report suicidal/homicidal thoughts, ideas, or plans. Patient denies auditory, visual hallucinations. Patient reports delusions. Patient does not appear to be attending to internal stimuli. Patients attention and concentration are poor. Patient is oriented to person, place, time. Patients insight and judgment poor. SUBSTANCE ABUSE BRIEF INTERVENTION: Brief intervention regarding the risks of cannabis abuse is provided to patient with goal to reduce the risk of harm that could result from the continued use of cannabis, with the general aim to investigate the problem, raise awareness of problem, develop a solution with the patient, recommend a specific change or activity, and motivate the patient toward change. Assess substance abuse behavior and give supportive advice about harm reduction, recommend a reduction in hazardous/at-risk consumption patterns, and facilitate referrals for additional specialized treatment with residential child care counselor. Intermediate goal is for the patient to quit and attend outpatient substance abuse treatment. Intervention focus on intermediate goals to allow for more immediate success in the treatment process to keep the patient motivated. Review following with patient: Cannabis use risks: Short- term use: impaired short-term memory, impaired motor coordination, altered judgement, in high doses paranoia and psychosis. Long-term use addiction, diminished life satisfaction and achievement, symptoms of chronic bronchitis, and increased risk of chronic psychosis disorders if predisposition to such disorders. In withdrawal anger, aggression irritability, anxiety and nervousness, decreased appetite or weight loss, restlessness, and sleep difficulties with strange dreams. OUTPATIENT SUBSTANCE ABUSE TREATMENT: Patient referred to outpatient provider and treatment for continued treatment related to substance abuse. - Time Spent With Patient Time Spent With Patient: 15 minutes, met with patient individually. - Pending Discharge Pending Discharge Within 24 Hours: No Pending Discharge Within 48 Hours: No ICD10 Worksheet Patient Problems: Problems Problem Status Onset Cannabis use disorder, severe, dependence Acute Nicotine dependence Acute Unspecified psychosis Acute
[2018-09-27] MEDS: NICOTINE POLACRILEX 2 MG GUM B PRN ×7 (08:35→19:06)
--- NOTE | 2018-09-27 15:53 | ASMTCMCOM ---
CM Note CM Note Notes: According to [facility] staff, the patient reported during goals group that he would not be abiding by the no cussing expectation on the unit because he needs to be accepted for who he is. He requested that his "top of the hour" precaution be discharged because his needs should be met on a 30 minute basis. The patient continues to refuse medication including concealing the medication to avoid taking it. The patient admitted that his psychiatric symptoms coincide with his increased THC use. The patient continues to lack insight into his hospital admission. Date Signed: 09/27/2018 03:52 PM Electronically Signed By:Sarina Griffith
[2018-09-27] MEDS: OLANZapine DISINTEGR 10 MG TAB PO SCH (21:56)
[2018-09-27] MEDS: MELATONIN 3 MG TAB PO SCH (21:57)
[2018-09-28] MEDS ORDERED: NICOTINE POLACRILEX 2 MG GUM B ONE (00:02)
[2018-09-28] MEDS: NICOTINE POLACRILEX 2 MG GUM B PRN ×5 (00:03→09:59)
[2018-09-28 06:54] VITALS: BP 123/78
--- NOTE | 2018-09-28 08:44 | BDS ---
REASON FOR ADMISSION: From the ED note dated 09/20/2018, patient presented to the emergency department on an M1 hold from the [facility] program at the [facility] for concerns of grave disability, delusional behaviors, and psychotic features that reported for lasting for approximately 6 weeks. The patient was allegedly stalking a classmate that he reportedly was "in love with, " although the patient had never been in a relationship with her. Patient was admitted involuntarily on an M1 hold due to being gravely disabled due to mental illness. The patient was admitted for safety, crisis stabilization, and medication evaluation. ADMITTING DIAGNOSES: 1. Cannabis use disorder, severe. 2. Nicotine dependence. 3. Cannabis induced psychotic disorder with delusions. ADMISSION PHYSICAL EXAM: The patient was seen on 09/20/2018, for Internal Medicine consultation for medical clearance for inpatient psychiatric hospitalization and treatment. The patient was medically cleared for inpatient psychiatric hospitalization and treatment for further details, please refer to consultation note dated 09/20/2018. ADMISSION LABS: 1. CBC from 09/20/2018, within normal limits, except eosinophils were low at 0.4. 2. BMP from 09/20/2018, within normal limits, except glucose is elevated at 105. 3. Hemoglobin A1c from 09/20/2018, was within normal limits at 5.1. 4. Liver function from 09/20/2018, within normal limits. 5. Lipid panel from 09/20/2018, within normal limits, except cholesterol was low at 126, LDL cholesterol calculated was low at 59, non-HDL cholesterol was low at 77. 6. TSH from 09/20/2018, within normal limits at 1.870. 7. Toxicology screen from 09/20/2018, non-negative for THC, negative for all other substances screen, and negative for ethyl alcohol. MAJOR PROCEDURES/TESTS: None. 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 Patient's thought process was also nonlinear and illogical, at times disorganized. Patient was irritable and agitated. Treatment modalities utilized were milieu and group therapy. Patient has improved considerably with no signs of psychiatric symptoms and no psychiatric symptoms expressed at time of discharge. Patient reports he has improved since admission, states to be in stable condition, feels safe to discharge, and he contracts for safety. During the course of the patient's hospitalization, the patient admitted to increased cannabis use and did report that he feels as though his behavior and thought process changed with his increase in cannabis use. Substance use intervention was provided throughout the course of the patient's hospitalization and the patient reported that he is no longer going to use cannabis. Patient's response to treatment was good. There were no adverse or unexpected results of the patient's hospitalization and treatment. The patient was safe throughout his stay. Patient met with the treatment team prior to discharge to assess readiness to discharge and review discharge plan. The treatment team consensus is the patient is in stable condition, has a safe discharge plan, and is ready to discharge today. CONDITION AT DISCHARGE: Patient is in stable condition and is no longer a danger to self or others, and is not gravely disabled due to mental illness. Patient is no longer in need of inpatient level of care, and can be safely and effectively treated within the community. The patients level of risk at time of discharge is low. MSE: The patient is casually dressed and with good hygiene , and looks stated age. Patient is sitting, posture is upright, and position is relaxed. Patient appears awake, alert, and responds appropriately and reasonably during interview. Patient is engaged, relates well to interviewer, and emotional facial expression is appropriate to situation and changes appropriately with topic. Patient is cooperative, makes comfortable eye contact , and movements are voluntary, deliberate, coordinated, and smooth and even with no inappropriate movements. Patient makes laryngeal sounds effortlessly and shares conversation appropriately; pace of conversation is appropriate, and stream of talking is fluent; articulation is clear and understandable; word choice is effortless and appropriate for education level; completes sentences, occasionally pausing to think; rate and volume are appropriate for interview and setting. Patient reports mood as euthymic. Patients affect is stable with full variable range, congruent with mood, and appropriate to speech and circumstances. Patient has linear and logical thinking, with no loose associations, tangential thought, thought blocking, concrete thinking, or any other signs of formal thought disorder. Patient denies suicidal and homicidal ideation, and denies hallucinations and delusions. Patient appears to be a reliable historian with sound judgement and good insight into current condition. Patient has no apparent dysfunction in recent or remote memory noted , and no evidence of gross cognitive dysfunction noted at any point during the interview. DISCHARGE DIAGNOSES: 1. Cannabis use disorder, severe. 2. Nicotine dependence. 3. Cannabis induced psychotic disorder with delusions. CURRENT MEDICATIONS: Nicorette gum 2 mg as needed. DISPOSITION: Patient left the hospital independently and voluntarily. Patient plans to return to his home in [place]. FOLLOWUP: ocean export coordinator reports the appropriate outpatient follow-up services have been established and outpatient appointments have been scheduled. The patient received written instructions with times and dates of outpatient follow-up appointments. SUBSTANCE ABUSE BRIEF INTERVENTION: Brief intervention regarding the risks of cannabis and nicotine abuse is provided to patient with goal to reduce the risk of harm that could result from the continued use of cannabis and nicotine, with the general aim to investigate the problem, raise awareness of problem, develop a solution with the patient, recommend a specific change or activity, and motivate the patient toward change. Assess substance abuse behavior and give supportive advice about harm reduction, recommend a reduction in hazardous/at- risk consumption patterns, and facilitate referrals for additional specialized treatment with healthcare economics manager. Intermediate goal is for the patient to quit and attend outpatient substance abuse treatment. Intervention focus on intermediate goals to allow for more immediate success in the treatment process to keep the patient motivated. Review following with patient: Cannabis use risks: Short-term use: impaired short-term memory, impaired motor coordination, altered judgement, in high doses paranoia and psychosis. Long-term use addiction, diminished life satisfaction and achievement, symptoms of chronic bronchitis, and increased risk of chronic psychosis disorders if predisposition to such disorders. In withdrawal anger, aggression irritability, anxiety and nervousness, decreased appetite or weight loss, restlessness, and sleep difficulties with strange dreams. Nicotine dependence: lung cancer, other cancers, heart and circulatory system problems, diabetes, eye problems, infertility and impotence, more prone to respiratory infections, weakened senses , teeth and gum disease, premature aging, second hand smoke. Withdrawal symptoms include strong cravings, anxiety, irritability, restlessness, difficulty concentrating, depressed mood, frustration, anger, increased hunger, insomnia, and constipation or diarrhea. OUTPATIENT SUBSTANCE ABUSE TREATMENT: Patient referred to outpatient provider and treatment for continued treatment related to substance abuse. PATIENTS RESPONSE TO INTERVENTION: "I am going to go home and flush any cannabis I have left in my apartment." LEGAL COURSE: Patient was admitted involuntarily on an M1 hold for inpatient psychiatric hospitalization. Patient was placed on a short-term certification during the course of his hospitalization. Patient was discharged today independently and voluntarily short-term certification was terminated at time of discharge. ATTITUDE AT TIME OF DISCHARGE: The patients attitude was positive at time of discharge, and patient reports looking forward to discharging today. The patient reports he feels safe to discharge, is no longer a danger to himself or others, is in stable condition, and contracts for safety. Patient states he will continue medications as prescribed, and establish medication management treatment with an outpatient provider after discharge. Patient reports he understands the information that has been provided to him, and he understands, accepts, and agrees to psychotropic medications. Patient describes internal protective factors as the coping skills he has learned while hospitalized here, and he plans to continue to practice these coping skills after discharge. LABORATORY/STUDIES: There were no pending labs or studies at time. ADVANCED DIRECTIVES: There were no advance directives on file, and patient was full code during this hospitalization. /[id number]
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
== END 2018-09-28 12:21 | disposition home or self-care (01) | DRG 897 ==
LOC: BBEH 19:16
PROVIDERS: ADMIT Registered Nurse; ATTEND Psychiatry & Neurology Psychiatry
DX: F12.250 Cannabis dependence with psychotic disorder with delusions (principal); F17.210 Nicotine dependence, cigarettes, uncomplicated
CPT/HCPCS: 80305; G0480